=== PATIENT | female | born 1980 | race Caucasian/White ===

== ENCOUNTER 2016-07-16 21:00 | Emergency (ER) | payer OTHER ==
[~2016-07-16] VITALS: Ht 160 cm; Wt 61.0 kg
[~2016-07-16 21:00] MED LIST: IBUPROFEN600 MG PO; NAPROSYN500 MG PO; PENICILLN VK500 MG PO
[2016-07-16] MEDS ORDERED: PERCOCET 5/325M1 TAB PO (21:49)
[2016-07-16] MEDS ORDERED: AMOXICILLIN500 MG PO (21:49)
[2016-07-16 21:50] VITALS: BP 135/93
== END 2016-07-16 21:50 | disposition home or self-care (01) | DRG 159 ==
LOC: ED 21:00
DX: K08.89 Other specified disorders of teeth and supporting structures (principal)

== ENCOUNTER 2016-10-17 11:49 | Emergency (ER) | payer OTHER ==
[~2016-10-17] VITALS: Ht 160 cm; Wt 65.0 kg
[~2016-10-17 11:49] MED LIST changes: +AMOXICILLIN500 MG PO; +PERCOCET 5/325M1 TAB PO
[2016-10-17] MEDS ORDERED: PENICILLN VK500 MG PO (12:12)
[2016-10-17] MEDS ORDERED: LORTAB 5-325 MG1 TAB PO (12:12)
[2016-10-17 12:25] VITALS: BP 131/80
== END 2016-10-17 12:25 | disposition home or self-care (01) | DRG 159 ==
LOC: ED 11:49
DX: K02.9 Dental caries, unspecified (principal)

== ENCOUNTER 2017-06-17 19:31 | Emergency (ER) | payer OTHER ==
[~2017-06-17] VITALS: Ht 160 cm; Wt 64.6 kg
[~2017-06-17 19:31] MED LIST changes: +LORTAB 5-325 MG1 TAB PO
[2017-06-17] MEDS ORDERED: TORADOL PO (20:07)
[2017-06-17] MEDS ORDERED: AMOXICILLIN500 MG PO (20:07)
[2017-06-17 20:15] VITALS: BP 138/97
== END 2017-06-17 20:15 | disposition home or self-care (01) | DRG 159 ==
LOC: ED 19:31
DX: K02.9 Dental caries, unspecified (principal); B19.20 Unspecified viral hepatitis C without hepatic coma; F17.210 Nicotine dependence, cigarettes, uncomplicated

== ENCOUNTER 2018-11-11 12:54 | Emergency (ER) | payer OTHER ==
[~2018-11-11 12:54] MED LIST changes: +TORADOL PO
== END 2018-11-11 12:55 | disposition left against medical advice (07) | DRG 951 ==
LOC: ED 12:54 → LWOBS 12:55
DX: Z91.19 Patient's noncompliance with other medical treatment and regimen (principal)

== ENCOUNTER 2019-08-02 20:35 | Emergency (ER) | payer OTHER ==
[2019-08-02 21:08] LABS: HEMOGLOBIN 12.3 g/dl (12.0-16.0); IMMATURE GRANULOCYTES 0.2 % (0.0-5.0); MEAN CELL VOLUME 84.7 fL CALC (80.0-100.0); MEAN CORPUSCULAR HGB 27.2 pG CALC (26.0-32.0); MEAN CORPUSCULAR HGB CONC 32.1 g/dL CAL (32.0-36.0); NEUT# 6.24 thou/uL (2.00-7.15); RED BLOOD COUNT 4.52 mill/uL (4.20-5.60); RED CELL DISTRI WIDTH 14.3 % (11.5-15.5)
[2019-08-02 21:12] LABS: HEMATOCRIT 38.3 % (37.0-47.0)
[2019-08-02 21:25] LABS: ANION GAP 17 (6-22 (CALC)); BILIRUBIN, TOTAL 0.4 mg/dL (0.0-1.4); BUN 16 mg/dL (7-17); BUN/CREATININE RATIO 17 (12-20 (CALC)); CARBON DIOXIDE 24 mmol/l (22-30); CHLORIDE 98 mmol/l (95-108); CREATININE 0.9 mg/dL (0.5-1.0); ETHYL ALCOHOL 0 mg/dl (0-30); GFR > 60 ML/MIN (>=60 (CALC)); GFR FOR AFR.AMER. > 60 ML/MIN (>=60 (CALC)); POTASSIUM 3.4 mmol/l (3.5-5.1); SGOT/AST 54 u/l (14-36); SODIUM 136 mmol/l (137-146)
[2019-08-02 21:26] LABS: ALBUMIN 4.3 g/dL (3.2-5.0); ALKALINE PHOSPHATASE 78 u/l (38-126); TOTAL PROTEIN 7.9 g/dL (6.3-8.2)
[2019-08-02 21:36] LABS: MYOGLOBIN 31 ng/mL (0 - 62)
[2019-08-03 00:11] LABS: URINE BILIRUBIN - DIPSTICK NEGATIVE (NEGATIVE); URINE BLOOD DIPSTICK TRACE-INTACT (NEGATIVE); URINE COLOR YELLOW; URINE GLUCOSE - DIPSTICK NEGATIVE (NEGATIVE); URINE KETONE NEGATIVE (NEGATIVE); URINE LEUK ESTERASE NEGATIVE (NEGATIVE); URINE NITRITE - DIPSTICK POSITIVE (Negative); URINE PROTEIN - DIPSTICK 100 mg/dL (NEG-TRACE); URINE SPECIFIC GRAVITY >=1.030; URINE UROBILINOGEN - DIPSTICK 0.2 E.U./dL (0.2)
[2019-08-03 00:15] LABS: URINE WBC 20-50 WBC/hpf (0-5)
[2019-08-03 00:16] LABS: URINE BACTERIA MANY hpf; URINE SQUAMOUS EPITHELIAL CELL MODERATE EPI/hpf (0-FEW)
[2019-08-03] MEDS ORDERED: CEPHALEXIN500 MG PO (00:18)
[2019-08-03 00:40] VITALS: BP 130/71
--- NOTE | 2019-08-04 09:03 | NUR ---
PRELIM BLOOD CX SHOW GRAM POSITIVE COCCI IN 1/4 BOTTLES. TRIED TO CALL PT, HER PHONE NUMBER IS OUT OF SERVICE. CALLED NEXT OF KIN AND LEFT MESSAGE. WILL FOLLOW UP LATER.
--- NOTE | 2019-08-06 08:02 | NUR ---
F/U ON BLOOD CULTURES, FINAL SHOWS STAPH EPIDERMIDIS. LIKELY A CONTAMINANT. PT PHONE NUMBER IS OUT OF SERVICE, LM ON HUSBANDS PHONE 08/03 AND 08/05
--- NOTE | 2019-08-06 08:25 | NUR ---
spoke with dr bass in [place], advised to send letter to pt. sent letter to pt with instructions to follow up with pcp or return to ed for evaluation based on blood culture results
== END 2019-08-03 00:40 | disposition home or self-care (01) ==
LOC: ED 20:35
PROVIDERS: Emergency Medicine
DX: F19.10 Other psychoactive substance abuse, uncomplicated (principal); N39.0 Urinary tract infection, site not specified; F17.210 Nicotine dependence, cigarettes, uncomplicated; Z11.59 Encounter for screening for other viral diseases; R40.20 Unspecified coma

== ENCOUNTER 2021-11-03 14:58 | Emergency (ER) | payer MEDICAID ==
[2021-11-03] VITALS (9 sets, daily range): BP systolic 84–132; BP diastolic 56–85
[~2021-11-03] VITALS: Ht 160 cm; Wt 65.9 kg
[~2021-11-03 14:58] MED LIST changes: +CEPHALEXIN500 MG PO
[2021-11-03 16:56] LABS: HEMATOCRIT 34.7 % (37.0-47.0); HEMOGLOBIN 11.8 g/dl (12.0-16.0); IMMATURE GRANULOCYTES 0.2 % (0.0-5.0); MEAN CORPUSCULAR HGB 27.2 pG CALC (26.0-32.0); NEUT# 6.21 thou/uL (2.00-7.15); RED BLOOD COUNT 4.34 mill/uL (4.20-5.60); RED CELL DISTRI WIDTH 16.7 % (11.5-15.5)
[2021-11-03 16:56] LABS: URINE BILIRUBIN - DIPSTICK NEGATIVE (NEGATIVE); URINE BLOOD DIPSTICK NEGATIVE (NEGATIVE); URINE COLOR YELLOW; URINE GLUCOSE - DIPSTICK NEGATIVE (NEGATIVE); URINE KETONE NEGATIVE (NEGATIVE); URINE LEUK ESTERASE NEGATIVE (NEGATIVE); URINE PROTEIN - DIPSTICK NEGATIVE (NEG-TRACE); URINE SPECIFIC GRAVITY <=1.005; URINE UROBILINOGEN - DIPSTICK 0.2 E.U./dL (0.2)
[2021-11-03 16:57] LABS: URINE NITRITE - DIPSTICK NEGATIVE (Negative)
[2021-11-03 17:17] LABS: ALBUMIN 4.3 g/dL (3.2-5.0); ALKALINE PHOSPHATASE 61 u/l (38-126); ANION GAP 17 (6-22 (CALC)); BILIRUBIN, TOTAL 0.4 mg/dL (0.0-1.4); BUN 12 mg/dL (7-17); BUN/CREATININE RATIO 20 (12-20 (CALC)); CARBON DIOXIDE 15 mmol/l (22-30); CHLORIDE 110 mmol/l (95-108); CREATININE 0.6 mg/dL (0.5-1.0); GFR FOR AFR.AMER. > 60 ML/MIN (>=60 (CALC)); GFR OTHER RACES > 60 ML/MIN (>=60 (CALC)); LIPASE 139 u/l (23-300); POTASSIUM 3.6 mmol/l (3.5-5.1); SGOT/AST 25 u/l (14-36); SODIUM 138 mmol/l (137-146); TOTAL PROTEIN 7.5 g/dL (6.3-8.2)
== END 2021-11-03 18:42 | disposition left against medical advice (07) ==
LOC: ED 14:58
PROVIDERS: Family Medicine
DX: R10.31 Right lower quadrant pain (principal); R10.32 Left lower quadrant pain; R51.9 Headache, unspecified; D50.9 Iron deficiency anemia, unspecified; B19.20 Unspecified viral hepatitis C without hepatic coma; F41.9 Anxiety disorder, unspecified; F17.210 Nicotine dependence, cigarettes, uncomplicated; Z91.19 Patient's noncompliance with other medical treatment and regimen; Z20.822 Contact with and (suspected) exposure to COVID-19
CPT/HCPCS: Q9967

== ENCOUNTER 2024-02-14 18:39 | Emergency (ER) | payer OTHER ==
[~2024-02-14] VITALS: Ht 160 cm; Wt 65.7 kg
[2024-02-14 19:20] VITALS: BP 142/82
[2024-02-14] MEDS ORDERED: ACETAMINOPHEN 500 MG TAB PO ONE (19:40)
[2024-02-14] MEDS ORDERED: VOLTAREN - GENE75 MG PO (19:45)
[2024-02-14] MEDS ORDERED: DICLOFENAC SODIUM 75 MG/TAB PO ONE (19:45)
[2024-02-14] MEDS ORDERED: NEOMYCIN-BACITRACIN-POLYMYXIN 0.5 GM/PAK PAK TOP ONE (19:45)
[2024-02-14 20:00] VITALS: BP 146/88
[2024-02-14 20:17] VITALS: BP 142/82
== END 2024-02-14 20:20 | disposition home or self-care (01) | DRG 605 ==
LOC: ED 18:39
DX: S80.02XA Contusion of left knee, initial encounter (principal); S80.212A Abrasion, left knee, initial encounter; W01.0XXA Fall on same level from slipping, tripping and stumbling without subsequent striking against object, initial encounter; Y92.009 Unspecified place in unspecified non-institutional (private) residence as the place of occurrence of the external cause

== ENCOUNTER 2024-05-13 05:23 | Emergency (ER) | payer OTHER ==
[~2024-05-13] VITALS: Ht 160 cm; Wt 61.2 kg
[~2024-05-13 05:23] MED LIST changes: +VOLTAREN - GENE75 MG PO
[2024-05-13] MEDS ORDERED: AMOXICILLIN & POT CLAVULANATE 875 MG/TAB PO ONE (05:35)
[2024-05-13] MEDS ORDERED: ACETAMINOPHEN 500 MG TAB PO ONE (05:35)
[2024-05-13] MEDS ORDERED: Diph, Acellular Pertussis, Tet 0.5 ML/VIAL (Tdap) SDV IM ONE (05:35)
[2024-05-13] MEDS ORDERED: AMOX/K CLAV875 M1 PO (05:39)
[2024-05-13 05:55] VITALS: BP 144/91
== END 2024-05-13 05:55 | DRG 605 ==
LOC: ED 05:23
DX: S51.852A Open bite of left forearm, initial encounter (principal); W54.0XXA Bitten by dog, initial encounter; Z02.89 Encounter for other administrative examinations
CPT/HCPCS: 90715